=== PATIENT | male | born 1955 | race Caucasian/White ===

== ENCOUNTER 2016-08-19 15:23 | Emergency (ER) ==
[2016-08-19 15:23] VITALS: BMI 32.1
[2016-08-19 15:29] VITALS: BP 160/97; TEMP 97.7
[2016-08-19] MEDS ORDERED: LIDOCAINE 1 % AMP 5 ML (SUTURES) SUBCUT STA (15:36)
--- NOTE | 2016-08-19 16:08 | CT ---
EXAM: CT of the head without contrast. HISTORY: Head injury. COMPARISON: None available. TECHNIQUE: Noncontrast CT of the head. FINDINGS: No intracranial hemorrhage or mass effect is identified. There is mild prominence of the sulci and v entricles. Minimal bicerebral periventricular white matter hypodensities are seen. No large area of knowles white matter differentiation loss is seen to suggest an acute infarct. Intracranial calcified atherosclerotic plaque is present. There is mild focal abnormal contour of the right anterolateral scalp. There is focal increased den sity of the posterior superior midline scalp. The calvarium is intact. There is moderate bilateral maxillary sinus mucosal thickening with air fluid levels. IMPRESSION: No evidence of an acute intracranial process. Posterior superior midline scalp focal increased density. Small focal abnormal contour of the superi or right anterolateral scalp. Clinical correlation suggested. Bilateral maxillary sinusitis. Atrophy, chronic small vessel ischemic changes and atherosclerosis.
--- NOTE | 2016-08-19 16:13 | ED.PDOC ---
General ED Provider: Dr. HEATH YANG-ER Chief Complaint: Head Injury Stated Complaint: i fell and hit my head Time Seen by Physician: 15:30 Mode of Arrival: Walk-In Information Source: Patient, Family Exam Limitations: No limitations Primary Care Provider: ISAIAH MONREAL Nursing and Triage Documentation Reviewed and Agree: Yes Trauma/Injury Complaint Exam - Head Injury Complaint/Exam Location of Pain: Reports: Scalp Mechanism of Injury: Reports: Trauma Onset/Duration: 1 hour Symptoms Are: Still present Initial Severity: Mild Current Severity: Mild Character: Reports: Dull, Throbbing Aggravating: Reports: None Alleviating: Reports: None Associated Signs and Symptoms: Denies: Confusion, Memory loss, Seizure, Epistaxis, Dental malocclusion, Neck pain, Nausea, Vomiting Loss of Consciousness: None SDH Risk Factors: Present: None Cervical Spine Injury Risk Factors: Present: None Related Surgical History: Reports: None Head Injury Findings: Present: Normal findings Glascow Coma Scale (see protocol): 15 Focal Weakness: Present: None Focal Sensory Loss: Present: None Gait: Normal Gag Reflex Present: Yes Finger to Nose: Normal Babinski Sign: Negative Right, Negative Left Heel to Toe Normal: Yes Differential Diagnoses: Cervical Fracture, Intracranial Bleed, Trauma Review of Systems - Review Of Systems Constitutional: Reports: No symptoms Eyes: Reports: No symptoms Ears, Nose, Mouth, Throat: Reports: No symptoms Respiratory: Reports: No symptoms Cardiac: Reports: No symptoms GI: Reports: No symptoms : Reports: No symptoms Musculoskeletal: Reports: No symptoms Skin: Reports: No symptoms Neurological: Reports: Headache Endocrine: Reports: No symptoms Hematologic/Lymphatic: Reports: No symptoms All Other Systems: Reviewed and Negative Past Medical History - Past Medical History Previously Healthy: Yes Endocrine: Reports: None Cardiovascular: Reports: Hypertension Respiratory: Reports: None Hematological: Reports: None Gastrointestinal: Reports: None Genitourinary: Reports: None Neuro/Psych: Reports: None Musculoskeletal: Reports: None Cancer: Reports: None - Surgical History General Surgical History: Reports: None - Family History Family History: Reports: None - Social History Smoking Status: Former smoker Hx Substance Use: No Alcohol Screening: Occasionally Lives: With family - Immunizations Tetanus Shot up to Date: Yes Physical Exam - Physical Exam Appearance: Well-appearing, No pain distress, Well-nourished Pain Distress: Mild Eyes: BRITTANY ENT: Ears normal, Nose normal, Oropharynx normal Neck: Supple Respiratory: Airway patent, Breath sounds clear, Breath sounds equal, Respirations nonlabored Cardiovascular: RRR, Pulses normal, No rub, No murmur GI/: Soft, Nontender, No masses, Bowel sounds normal, No Organomegaly Musculoskeletal: Normal strength, ROM intact, No edema, No calf tenderness Skin: Warm, Dry, Normal color Neurological: Sensation intact, Motor intact, Reflexes intact, Cranial nerves intact, Alert, Oriented Psychiatric: Affect appropriate, Mood appropriate Interpretation - Radiology Interpretation Radiology Interpretation By: Radiologist Radiology Results: Negative Exam Interpreted: CT Scan Re-Evaluation - Re-Evaluation Time of Re-Evaluation: 16:13 Status: Unchanged Vital Signs Stable: Yes Pain Level: 1 Appearance: NAD Lungs: Clear Skin: Warm and Dry Neuro: Alert and Oriented X3 CV: RRR Critical Care Note - Critical Care Note Total Time (mins): 0 Course - Course Orders, Labs, Meds: Orders Category Date Time Status Lidocaine HCl/Pf [Lidocaine 1 % Amp 5 ml (Sutures)] MEDS 08/19/16 15:36 Discontinued 5 ml SUBCUT ONCE STA CT CERVICAL SPINE W/O CONTRAST Stat RADS 08/19/16 15:[address] HEAD W/O CONTRAST Stat RADS 08/19/16 15:34 Completed Medications Discontinued Medications Generic Name Dose Route Start Last Admin Trade Name Brunilda PRN Reason Stop Dose Admin Lidocaine HCl 5 ml 08/19/16 15:36 Lidocaine 1 % Amp 5 Ml (Sutures) SUBCUT 08/19/16 15:37 ONCE STA Vital Signs: Temp Pulse Resp BP Pulse Ox 08/19/16 15:23 97.7 F 73 20 160/97 H 95 Departure - Departure Time of Disposition: 16:13 Disposition: HOME SELF-CARE Discharge Problem: Injury of head Instructions: Head Injury (ED), Laceration (ED), Staple Care (ED) Condition: Good Pt referred to PMD for follow-up: Yes Additional Instructions: routine head injury instructions--sonali out in 7 days--return if any signs of infection Allergies/Adverse Reactions: Allergies No Known Allergies Allergy (Verified 08/19/16 15:34) Home Medications: Ambulatory Orders Aspirin [Aspirin Chewable] 81 mg PO DAILY 02/06/13 Hydrochlorothiazide 25 mg PO DAILY 02/06/13 Lisinopril [Zestril] 20 mg PO DAILY 02/06/13 Pravastatin Sodium [Pravachol] 10 mg PO BEDTIME 02/06/13 Metformin HCl [Glucophage] 500 mg PO DAILY 08/19/16 Disposition Discussed With: Patient, Family
--- NOTE | 2016-08-19 16:13 | CT ---
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 No fracture or traumatic listhesis is se en. There is mild multilevel intervertebral disc height loss with small anterior osteophytes. Moder ate left facet arthropathy is seen at C3-C4. There is partial fusion of C2 and C3. No abnormal prev ertebral soft tissue swelling is seen. There are mild degenerative changes of the anterior atlantod ental interval. IMPRESSION: No evidence of acute osseous injury to the cervical spine. Mild multilevel degenerative disc disease.
== END 2016-08-19 16:38 | disposition home or self-care (01) ==
LOC: ED 15:23
DX: S01.01XA Laceration without foreign body of scalp, initial encounter (principal); S09.90XA Unspecified injury of head, initial encounter; I10 Essential (primary) hypertension; W19.XXXA Unspecified fall, initial encounter
CPT/HCPCS: 96360; 99283

== ENCOUNTER 2019-01-27 06:29 | Day surgery (SDC) ==
[2019-01-27] MEDS ORDERED: LIDOCAINE 1% 20 ML MDV ID STA (07:04)
[2019-01-27 07:08] VITALS: TEMP 97.5
[2019-01-27] MEDS ORDERED: VERSED ONE (07:55)
[2019-01-27] MEDS ORDERED: DIPRIVAN 20 ML VIAL IVP ONE (07:55)
[2019-01-27 11:54] VITALS: BP 132/56
--- NOTE | 2019-01-28 09:32 | OP ---
INDICATIONS FOR PROCEDURE: 63 year old gentleman presents for a screening colonoscopy exam. MEDICATIONS: SEE ANESTHESIA NOTES. PROCEDURE: COLONOSCOPY. SNARE POLYPECTOMY REPORT: The risks, benefits, alternatives and limitations were discussed in detail with the patient. Informed consent was obtained. After adequate sedation was achieved, a digital rectal exam revealed good tone, no masses. The colonoscope was introduced into the rectum and advanced under direct visual guidance to the cecum. The cecum was identified by the appendiceal orifice and IC valve. I then slowly withdrew the scope in circumferential manner and examined the mucosa quite carefully. I looked on the proximal and distal sides of folds and flexures as best as possible. I was able to retroflex the scope in the right colon as well as the left colon. At the hepatic flexure there is a small 5 or 6mm semi-sessile polyp and I removed this by snare technique. In the distal transverse colon there is a 5-6mm sessile polyp that I removed by snare technique. No other abnormalities were noted throughout the colon. The scope was retroflexed to look at the anal canal which was unremarkable. The withdrew time with 17 minutes and 20 seconds. The patient tolerated the procedure well with stable vital signs and pulse oximetry throughout. IMPRESSION: 1. Two small polyps removed RECOMMENDATIONS: 1. High fiber diet 2. Office visit as needed 3. Await pathology results and if everything is benign as expected I recommend surveillance colonoscopy examination in 5 years or sooner if there are signs or symptoms to indicate otherwise. CC: Dr. Monroe COSTA
== END 2019-01-27 09:40 | disposition home or self-care (01) ==
LOC: SURG 06:29
PROVIDERS: ATTEND Internal Medicine Gastroenterology
DX: Z12.11 Encounter for screening for malignant neoplasm of colon (principal); D12.4 Benign neoplasm of descending colon; D12.3 Benign neoplasm of transverse colon